=== PATIENT | female | born 1950 | race Caucasian/White ===

== ENCOUNTER → 2018-12-27 12:03 | Outpatient (CLI) | payer OTHER, SELFPAY ==
--- NOTE | 2018-12-27 12:34 | CT_ITS ---
PROCEDURE: CT HEART W CALCIUM SCORE CLINICAL HISTORY: chest pain COMPARISON: No exams were available for comparison TECHNIQUE: Axial images obtained with sagittal and coronal reformats. All CT scans at the facility use one or more dose reduction, viz: automated exposure control, ma/kV adjustment per patient size (including targeted exams where dose is matched to indication, i.e. head), or iterative reconstruction technique. FINDINGS: The coronary artery calcium score is 0. No identifiable calcific atherosclerotic plaque with very low cardiovascular disease risk. Incidental findings include a small hypodense lesion of the left hepatic lobe near the dome of the liver at 7 mm and may represent a small cyst. There is a subpleural 5 mm nodular opacity in right upper lobe anteriorly nonspecific IMPRESSION: No identifiable calcific plaque very low cardiovascular disease risk Dictated by: Tod Farooq MD 12/27/2018 16:40 Electronically signed by Tod Farooq MD in [place] 12/27/2018 16:40
== END ==
PROVIDERS: Visit Provider Internal Medicine
DX: Z13.6 Encounter for screening for cardiovascular disorders (principal); R07.9 Chest pain, unspecified; R06.09 Other forms of dyspnea; E03.9 Hypothyroidism, unspecified; E11.69 Type 2 diabetes mellitus with other specified complication; E11.9 Type 2 diabetes mellitus without complications; E78.5 Hyperlipidemia, unspecified; I10 Essential (primary) hypertension; K21.9 Gastro-esophageal reflux disease without esophagitis
CPT/HCPCS: 75571

== ENCOUNTER → 2018-12-27 12:06 | Outpatient (CLI) | payer MEDICARE, SELFPAY ==
--- NOTE | 2018-12-27 12:14 | CA_ITS ---
APPROVED REPORT EXAM: Comprehensive 2D, Doppler, and color-flow Echocardiogram Seed Service Advisor: Morena Joy CRT Ht: 5 ft 1 in Wt: 138lbs BSA: 1.61 BP: 119/80 mmHg Indications: HTN, MURMUR, PALP 2D Dimensions LVOT 1.85 cm (M/F) 1.5-2.5 M-Mode Dimensions RVDd 2.10 cm (0.9-2.6) LVDd 4.98 cm (3.5-5.7) LVDs 3.26 cm (3.5-5.7) IVSd 1.17 cm (0.6-1.1) PWd 0.87 cm (0.6-1.1) EF (Teich) 63.50% FS 34.50% EDV (Teich) 117.10 mL ESV (Teich) 42.80 mL LV Diastology E/A Ratio 0.59 Mitral Valve MV A Velocity 108.00 (40-130 cm/s) Left Ventricle Left atrium is mildly enlarged, left ventricle is normal size, mild concentric left ventricular hypertrophy, visually estimated ejection fraction 55% with no regional wall motion abnormality. Grade 1 diastolic dysfunction seen without tissue Doppler evidence of raise left atrial pressure. Right Ventricle Right atrium and right ventricular normal size and contractility. Aortic Valve Aortic valve is thickened and calcified difficult to display good mobility, there is no aortic stenosis, there is trace aortic insufficiency. Mitral Valve Mitral valve is grossly normal, there is mild mitral regurgitation. Tricuspid Valve Tricuspid valve is grossly normal, there is mild tricuspid regurgitation. Pulmonic Valve Pulmonic valve is poorly visualized. Great Vessels Aortic root is normal size. Pericardium No significant pericardial effusion noted. Conclusion 1. Mildly enlarged left atrium, normal left ventricular size, mild concentric left ventricular hypertrophy, visually estimated ejection fraction 55% with no regional wall motion abnormality. Grade 1 diastolic dysfunction seen without tissue Doppler evidence of raise left atrial pressure. 2. Thickened and calcified aortic valve without aortic stenosis, there is trace aortic insufficiency. 3. Mild mitral and tricuspid regurgitation. 4. No significant pericardial effusion noted. Electronically signed by : Cristobal Henderson, 12/28/2018 13:41:43
--- NOTE | 2018-12-27 12:34 | XR_ITS ---
PROCEDURE: XR CHEST 2V CLINICAL HISTORY: chest pain, dyspnea Anterior chest pain COMPARISON: No exams were available for comparison FINDINGS: The cardiomediastinal silhouette and pulmonary vascularity are within normal limits. The lungs are clear without infiltrates, suspicious nodules, or pleural effusions. No acute bony abnormalities. IMPRESSION: No acute findings. Dictated by: Tod Farooq MD 12/27/2018 14:56 Electronically signed by Tod Farooq MD in [place] 12/27/2018 14:56
== END ==
PROVIDERS: Visit Provider Internal Medicine
DX: R07.9 Chest pain, unspecified (principal); R06.09 Other forms of dyspnea; K21.9 Gastro-esophageal reflux disease without esophagitis; I10 Essential (primary) hypertension; E03.9 Hypothyroidism, unspecified; E11.69 Type 2 diabetes mellitus with other specified complication; E78.5 Hyperlipidemia, unspecified
CPT/HCPCS: 71046; 93306

== ENCOUNTER → 2019-08-15 12:07 | Outpatient (CLI) | payer MEDICARE, SELFPAY ==
[2019-08-15 14:19] LABS: Benzodiazepines Screen,Urine Negative ng/ml (<200)
[2019-08-15 14:20] LABS: Amphetamine/Metha Screen,Urine Negative ng/ml (<1000)
[2019-08-15 14:21] LABS: Barbiturates Screen,Urine Negative ng/ml (<200)
[2019-08-15 14:24] LABS: Cocaine Screen,Urine Negative ng/ml (<300); Methadone Screen,Urine Negative ng/ml (<300)
[2019-08-15 14:25] LABS: Phencyclidine Screen,Urine Negative ng/ml (<25)
[2019-08-15 14:26] LABS: Opiate Screen,Urine Negative ng/ml (<300)
[2019-08-15 14:43] LABS: Cannabinoid Screen,Urine Negative ng/ml (<50)
== END ==
PROVIDERS: Visit Provider Internal Medicine
DX: E78.5 Hyperlipidemia, unspecified (principal); F41.9 Anxiety disorder, unspecified; I10 Essential (primary) hypertension; R06.00 Dyspnea, unspecified; R07.9 Chest pain, unspecified; Z79.899 Other long term (current) drug therapy
CPT/HCPCS: 80305

== ENCOUNTER → 2020-12-17 11:58 | Outpatient (CLI) | payer MEDICARE, SELFPAY ==
[2020-12-17 14:59] LABS: Amphetamine/Metha Screen,Urine Negative ng/ml (<1000)
[2020-12-17 15:00] LABS: Barbiturates Screen,Urine Negative ng/ml (<200); Benzodiazepines Screen,Urine Negative ng/ml (<200)
[2020-12-17 15:01] LABS: Cannabinoid Screen,Urine Negative ng/ml (<50)
[2020-12-17 15:07] LABS: Cocaine Screen,Urine Negative ng/ml (<300)
[2020-12-17 15:08] LABS: Methadone Screen,Urine Negative ng/ml (<300)
[2020-12-17 15:09] LABS: Opiate Screen,Urine Negative ng/ml (<300); Phencyclidine Screen,Urine Negative ng/ml (<25)
== END ==
PROVIDERS: Visit Provider Internal Medicine
DX: E78.5 Hyperlipidemia, unspecified (principal); F41.9 Anxiety disorder, unspecified; I10 Essential (primary) hypertension; R06.00 Dyspnea, unspecified; Z79.899 Other long term (current) drug therapy
CPT/HCPCS: 80305

== ENCOUNTER → 2022-04-28 12:31 | Outpatient (CLI) | payer MEDICARE, SELFPAY ==
--- NOTE | 2022-04-28 12:39 | CA_ITS ---
FINAL REPORT TECHNIQUE: Color Doppler, duplex Doppler and rajput scale sonography of the bilateral neck arterial vasculature was performed. Velocities were measured in the carotid arteries. Stenosis evaluation based on the validated velocity criteria. CLINICAL HISTORY: dizziness, hyperlipidemia, tingling on left side of face and arm. COMPARISON: None FINDINGS: The peak systolic velocity of the right common carotid artery is 97 cm/s. The peak systolic velocity of the right internal carotid artery is 137 cm/s and end diastolic velocity 43 cm/s. The ICA/CCA ratio is 1.8. A mild amount of plaque is present. The right external carotid artery is patent. The right vertebral artery is patent with antegrade flow. The peak systolic velocity of the left common carotid artery is 152 cm/s. The peak systolic velocity of the left internal carotid artery is 126 cm/s and end diastolic velocity 34 cm/s. The ICA/CCA ratio is 1.5. A mild amount of plaque is present. The left external carotid artery is patent.The left vertebral artery is patent with antegrade flow. IMPRESSION: Less than 50% bilateral carotid stenoses. Bilateral patent vertebral arteries with antegrade flow. If indicated, CTA or MRA could further evaluate. Reviewed, Interpreted and Dictated by Winston Fierro III, MD Transcribed by Kelsey Hardin Authenticated and [facility]
== END ==
PROVIDERS: Visit Provider Internal Medicine
DX: E78.2 Mixed hyperlipidemia (principal); I10 Essential (primary) hypertension; R06.09 Other forms of dyspnea; R07.9 Chest pain, unspecified; R42 Dizziness and giddiness; R91.8 Other nonspecific abnormal finding of lung field
CPT/HCPCS: 93880

== ENCOUNTER → 2022-07-01 10:37 | Outpatient (CLI) | payer MEDICARE, SELFPAY ==
--- NOTE | 2022-07-01 11:18 | CT_ITS ---
FINAL REPORT TECHNIQUE: Axial images were obtained from the lung apex to the mid abdomen by computed tomography. Coronal reformatted images were obtained. This study was performed with techniques to keep radiation doses as low as reasonably achievable, (ALARA). Individualized dose reduction techniques using automated exposure control or adjustment of mA and/or kV according to the patient''s size were employed. CLINICAL HISTORY: cp/dyspnea FINDINGS: There is no axillary adenopathy. There is no hilar or mediastinal adenopathy. Heart size is normal. There is no pericardial or pleural effusion. There is mild bibasilar atelectasis or scarring. There is no suspicious mass or nodule. There is a less than 1 cm probable cyst in the left liver dome. IMPRESSION: Mild bibasilar atelectasis or scarring. Reviewed, Interpreted and Dictated by Winston Fierro III, MD Transcribed by Yumiko Reed Authenticated and [facility]
--- NOTE | 2022-07-01 11:18 | NM_ITS ---
APPROVED REPORT Exam: Nuclear Stress Test Indication: HTN, PRE DIABETIC, FM HX, C.P., SOB, PALPITATIONS, FATIGUE, ABN EKG Patient Location: Outpatient Stress Tech: Jillian Montoya [place] Tech:Jennifer Enriquez, ARRT RT(R)(N) Ht: 5 ft 1 in Wt: 125 lbs Bra Size: 38C HR: 79 bpm BP: 166/81 mmHg BSA: 1.55 m2 TID: 1.15 BMI: 23.6 History: HTN, HYPERLIPIDEMIA, TOB USE, FM HX, C.P., SOB, SYNCOPE, FATIGUE Procedure: Patient received 0.4 mg of intravenous Lexiscan, resting heart rate 79 bpm, resting blood pressure 166/81 mmHg, with Lexiscan maximum heart rate achieved was 115 bpm which is % of the maximum predicted heart rate and blood pressure was 172/90 mmHg. With Lexiscan, patient denied any complaint of chest pain. Cardiac Stress and Resting SPECT Images: Cardiac Stress and Resting SPECT images were obtained using technetium 99m Myoview 32.8 mCi stress and 10.71 mCi at rest. Resting and stress imaging demonstrates a fixed perfusion defect in the mid to basal anterior and anteroseptal LV wall, as well as predominantly reversible perfusion defect inferiorly. These defects are no longer visualized at stress with prone positioning, demosntrating uniform radiotracer uptake, suggestive of both breast and diaphragm attenuation. Gated imaging demonstrates normal lef ventricular systolic global and regional function. LVEF is calculcated at 60%. Conclusion: There is breast and diaphragmatic attenuation present. No evidence of infarct or reversible ischemia. Gated imaging demonstrates normal lef ventricular systolic global and regional function. LVEF is calculcated at 60%. Electronically signed by : Daphne Koo, 07/02/2022 20:53:48
--- NOTE | 2022-07-01 13:42 | CA_ITS ---
APPROVED REPORT Exam: Pharmacologic Technologist: Jillian Rudd, Ht: 5 ft 1 in Wt: 125 lbs BSA: 1.55 m2 HR: 72 bpm BP: 166/81 mmHg Medical History Medications: Xanax,,,,, Vitamin B12,,,,, Vitamin D3,,,,, Atorvastatin,,,,, Calcium,,,,, Famotidine,,,,, Magnesium,,,,, PaXIL,,,,, Co Q10,,,,, Stress Test Details Test: LEXISCAN Reason for pharmacologic stress test: physical limitation. HR Resting HR: 79 bpm Max Heart Rate (APMHR): 148 bpm Max HR Achieved: 115 bpm Target HR (85% APMHR): 126 bpm % of APMHR: 78 Recovery HR: 85 bpm BP Resting BP: 166/81 mmHg Max BP: 172/90 mmHg Recovery BP: 141.0/73.0 mmHg ECG Resting ECG: sinus arrhythmia, non-specific T-wave changes in inferior leads Stress ECG: No change Clinical Exercise duration: 04:00 min Highest Stage Achieved: Exercise capacity: n/a METs Stress ECG Conclusion Symptoms: SOA, mild chest tightness, mild stomach & head discomfort. Arrhythmias/Ectopy: None ST-T changes: No significant changes. Conclusion: unremarkable Lexiscan stress. Myoview images reported separately. Test Summary REST . . . . . . . Resting REST 06:02 . . 79 . 166/ 81 . . Stage 1 01:00 . . 102 . . . . Stage 2 01:00 . . 113 . 168/ 87 . . Stage 3 01:00 . . 111 . 159/ 86 . . Stage 4 01:00 . . 103 . 172/ 90 . Stop exercise at 04:00 RECOVERY 01:00 . . 100 . . . . RECOVERY 02:00 . . 89 . . . . RECOVERY 03:00 . . 104 . 130/ 75 . . RECOVERY 03:39 . . 91 . 141/ 73 . . Electronically signed by : Daphne Koo, 07/01/2022 21:23:46
== END ==
LOC: RT 10:38
PROVIDERS: Visit Provider Internal Medicine
DX: E78.2 Mixed hyperlipidemia (principal); I10 Essential (primary) hypertension; I51.89 Other ill-defined heart diseases; R06.09 Other forms of dyspnea; R07.9 Chest pain, unspecified; R91.8 Other nonspecific abnormal finding of lung field
CPT/HCPCS: 71250; 78452; 93017; 93306; A9502; J2785

== ENCOUNTER → 2022-12-21 11:40 | Outpatient (CLI) | payer MEDICARE, SELFPAY ==
[2022-12-21 12:43] LABS: Amphetamine/Metha Screen,Urine Negative ng/ml (<1000); Benzodiazepines Screen,Urine Negative ng/ml (<200)
[2022-12-21 12:44] LABS: Barbiturates Screen,Urine Negative ng/ml (<200)
[2022-12-21 12:45] LABS: Cannabinoid Screen,Urine Negative ng/ml (<50); Cocaine Screen,Urine Negative ng/ml (<300)
[2022-12-21 12:46] LABS: Methadone Screen,Urine Negative ng/ml (<300); Opiate Screen,Urine Negative ng/ml (<300)
[2022-12-21 12:47] LABS: Phencyclidine Screen,Urine Negative ng/ml (<25)
== END ==
PROVIDERS: Visit Provider Internal Medicine
DX: E78.5 Hyperlipidemia, unspecified (principal); F41.9 Anxiety disorder, unspecified; I10 Essential (primary) hypertension; R42 Dizziness and giddiness; R91.8 Other nonspecific abnormal finding of lung field; Z79.899 Other long term (current) drug therapy
CPT/HCPCS: 80305

== ENCOUNTER 2023-06-21 12:22 | Outpatient (CLI) | payer MEDICARE, SELFPAY | END 2023-06-21 23:59 | disposition home or self-care (01) | LOC: RT 12:24 | PROVIDERS: Visit Provider Internal Medicine | DX: R00.0 Tachycardia, unspecified (principal) | CPT/HCPCS: 93225 ==

== ENCOUNTER 2023-06-23 12:39 | Outpatient (CLI) | payer MEDICARE, SELFPAY | END 2023-06-23 23:59 | disposition home or self-care (01) | PROVIDERS: Visit Provider Internal Medicine | DX: R00.0 Tachycardia, unspecified (principal) | CPT/HCPCS: 93270 ==

== ENCOUNTER → 2023-08-04 08:25 | Outpatient (CLI) | payer MEDICARE, SELFPAY | LOC: SL 08:26 | PROVIDERS: PCP Internal Medicine; Visit Provider Internal Medicine | DX: G47.33 Obstructive sleep apnea (adult) (pediatric) (principal); G47.36 Sleep related hypoventilation in conditions classified elsewhere; G47.9 Sleep disorder, unspecified; R06.83 Snoring; R40.0 Somnolence; R53.83 Other fatigue | CPT/HCPCS: G0399 ==

== ENCOUNTER 2023-08-24 11:52 | Outpatient (CLI) | payer MEDICARE, SELFPAY ==
--- NOTE | 2023-08-24 11:53 | CT_ITS ---
APPROVED REPORT Correctional Program Specialist: CLINICAL INDICATION Chest Pain TECHNIQUE Image Acquisition: A 128 slice MDCT scanner (iLoop Mobilea View) was used for data acquisition. A noncontrast coronary calcium scan was performed. A CT attenuation threshold of 130 Hounsfield units (HU) was used for the detection of calcium in contiguous voxels of 1 sq mm in area to be counted as individual lesions. Bolus tracking in the ascending aorta with a threshold of 180 HU was performed. Immediately afterwards, ECG synchronized cardiac CT was then performed from the cardiac base to apex using retrospective gating with ECG tube current modulation. A total of 85 mL of Isovue 370 mg/mL contrast medium was administered at 5 mL/sec followed by a saline flush using a biphasic injection protocol. A tube voltage of 120 KVp was used. The patient received the following medications prior to the cardiac CT. 50 mg of oral metoprolol 15 mg of oral ivabradine 0.8 mg of sublingual nitroglycerin The average heart rate at the time of acquisition was 67 bpm and regular. Image Reconstruction Transaxial images were reconstructed at 0.67 mm slide thickness. Data was reviewed interactively on an advanced workstation capable of 2 and 3-dimensional displays in all conventional reconstruction formats, including multiplanar reformations, maximum intensity projections, curved multiplanar reformations, and volume rendered reconstructions. When applicable, selected routine images describing the relevant coronary anatomy and pathology were saved and sent to PACS. Complications None Technical Quality Overall image quality was good. Coronary artery opacification was adequate. Total DLP (Dose-Length Product) is 2321.6 mGy-cm. The reported value represents the total of one or more individual components during the CT acquisition of this date and at this time, and as such, the same value may appear in more than one CT report depending on the interpreting/reporting physicians. COMPARISON None FINDINGS CT Coronary Calcium Scoring LMA (Left Main Artery) = 0 LAD (Left Anterior Descending) = 0 LCX (Left Coronary Circumflex) = 0 RCA (Right Coronary Artery) = 0 Total Calcium Score = 0 using the AJ-130 method. The interpretation of the calcium heart score is based on the following continuum*: 0 = no calcified plaque detected (risk of coronary artery disease is very low ??? less than 5%) 1-10 = calcium detected in extremely minimal levels (risk of coronary diseases is still low ??? less than 10%) 11-100 = mild levels of plaque detected with certainty (mild or minimal narrowing of heart arteries is likely) 101-400 = definite,at least moderate levels of plaque detected (relatively high risk of a heart attack within 3-5 years) >401-999 = extensive levels of plaque detected (high risk of heart attack, high levels of vascular disease are present, high likelihood of at least one significant coronary narrowing) *The calcium heart score quantifies the burden of coronary calcification/plaque in the coronary arteries. The calcium heart score is not able to evaluate the presence or burden of non-calcified (i.e. soft) plaque. There is calcification present in the descending thoracic aorta. Coronary CT Angiography The coronary arterial system is right dominant. Quantitative Stenosis Grading: Left Main (LM): The left main originates normally from the left sinus of Valsalva. The LM trifurcates into the left anterior descending artery, ramus intermedius, and left circumflex artery. The LM is patent with no evidence of atherosclerosis. Left Anterior Descending (LAD) and Diagonal Branches: The LAD gives off 2 diagonal branch(es). The LAD and its branches are patent with no evidence of atherosclerosis. There is no evidence of LAD-myocardial bridge. Ramus-intermedius (RI): The RI is patent. Left Circumflex (LCX) and Obtuse Marginals (OM): The LCX gives off 2 Obtuse Marginal (OM) branch(es). The LCX and its branches are patent with no evidence of atherosclerosis. Right Coronary Artery (RCA): The RCA originates normally from the right sinus of Valsalva. The RCA gives off a posterior descending artery (PDA) and posterolateral (PL) branches. The RCA and its branches are patent with no evidence of atherosclerosis. Non-Coronary Cardiac Findings: Analysis of the left ventricular (LV) structure and function was performed after 3-D reconstruction of the LV from axial images, with user-corrected automatic contouring for assessment of LV volumes and user-defined reconstruction from oblique planes for measurement of 3-D cardiac structure and function. -The left ventricle systolic function is normal. -There is no left atrial appendage filling defect. Two right pulmonary veins and two left pulmonary veins drain normally into the left atrium. -No pericardial thickening or calcification. -Central and branch pulmonary arteries in the [id number] are unremarkable. -Thoracic aorta within the visualized thoracic aortic-branches in the [id number] is unremarkable. Extracardiac Structures No significant extra-cardiac findings. Note, however, that this study is focused on the cardiac findings. IMPRESSION -No coronary calcification with an Agatston score = 0 using the AJ-130 method. -No evidence of significant flow-limiting atherosclerosis of the coronary arteries. -Calcification present in the descending thoracic aorta. -CAD-RADS 0. Management recommendations per ACC/AHA guidelines*, as clinically appropriate. *Recommendations: CAD RADS 0: Reassurance. Consider non-atherosclerotic causes of chest pain. CAD RADS 1: Consider non-atherosclerotic causes of chest pain. Consider preventive therapy and risk factor modification. CAD RADS 2: Consider non-atherosclerotic causes of chest pain. Consider preventive therapy and risk factor modification, particularly for patients with nonobstructive plaque in multiple segments. CAD RADS 3: Consider further functional testing. Consider symptom-guided anti-ischemic and preventive pharmacotherapy as well as risk factor modification per published guideline statements. CAD RADS 4A: Consider further functional testing or invasive coronary angiography with revascularization per published guideline statements. Consider symptom-guided anti-ischemic and preventive pharmacotherapy as well as risk factor modification per published guideline statements. CAD RADS 4B: Invasive coronary angiography recommended with revascularization per published guideline statements. Consider symptom-guided anti-ischemic and preventive pharmacotherapy as well as risk factor modification per published guideline statements. CAD RADS 5: Consider invasive angiography and/or viability assessment with revascularization per published guideline statements. Consider symptom-guided anti-ischemic and preventive pharmacotherapy as well as risk factor modification per published guideline statements. CRITICAL RESULT None COMMUNICATION Per this written report The coronary and cardiac findings of this CCTA were reviewed, reported, and signed by Naseem Koo MD (Manager [employer]) Conclusion Electronically signed by : Daphne Koo MD 08/25/2023 12:41:20
[2023-08-24 12:08] VITALS: BMI 23.8
[2023-08-24 12:29] VITALS: BP 155/82; PULSE 67; RESP 16; TEMP 36.2; O2SAT 98
[2023-08-24 12:35] LABS: Anion Gap 10.4 mEq/L (5-15); Blood Urea Nitrogen 15 mg/dl (7-17); Calcium 9.6 mg/dl (8.4-10.2); Carbon Dioxide 30 mmol/L (22.0-30.0); Chloride 104 mmol/L (98-107); Creatinine Clearance Estimated 45 mL/min (50-200); Estimated Glomerular Filt Rate 82 ml/min (>60); GFR (African American) 99 ML/MIN (>60); Glucose 111 mg/dl (74-100); Potassium 4.4 mmoL/L (3.5-5.1); Sodium 140 mmol/L (136-145)
[2023-08-24 12:58] VITALS: BP 181/95; PULSE 69; RESP 16; O2SAT 95
[2023-08-24] MEDS: NITROGLYCERIN 0.4MG SL TABLET SL (12:58)
[2023-08-24 13:01] VITALS: BP 164/92; PULSE 63; RESP 16; O2SAT 95
[2023-08-24 13:07] VITALS: BP 102/64; PULSE 76; RESP 16; O2SAT 93
[2023-08-24] MEDS: METOPROLOL TARTRATE 5MG/5ML VIAL 5 MG IV (13:07)
[2023-08-24 13:16] VITALS: BP 117/64; PULSE 63; RESP 18; O2SAT 98
[2023-08-24 13:26] VITALS: BP 137/82; PULSE 63; RESP 18; O2SAT 98
[2023-08-24] MEDS: SODIUM CHLORIDE 0.9% 10ML SYR (RAD ONLY) 10 ML IV (13:31)
[2023-08-24] MEDS: IOPAMIDOL-370 (76%);100ML BOTTLE 85 ML IV (13:31)
== END 2023-08-24 13:35 | disposition home or self-care (01) ==
PROVIDERS: PCP Physician Assistant; Visit Provider Physician Assistant
DX: R07.9 Chest pain, unspecified (principal); R06.09 Other forms of dyspnea; R91.8 Other nonspecific abnormal finding of lung field; R42 Dizziness and giddiness; I10 Essential (primary) hypertension; E78.2 Mixed hyperlipidemia; R53.83 Other fatigue
CPT/HCPCS: 75574; 80048; Q9967

== ENCOUNTER 2023-08-25 11:08 | Emergency (ER) | payer MEDICARE, SELFPAY ==
[2023-08-25] VITALS (8 sets, daily range): BP systolic 124–176; BP diastolic 56–85; PULSE 48–67; RESP 11–18; TEMP 36.6–36.9; O2SAT 93–97; BMI 23.8
--- NOTE | 2023-08-25 | ECG_ITS ---
APPROVED REPORT Exam: Resting ECG HR:58 bpm ECG Measurements Heart Rate 58 AXES CO 163 P 61 QRSd 72 QRS 37 QT 418 T 61 QTc 415 Conclusion SINUS BRADYCARDIA LOW QRS VOLTAGE IN PRECORDIAL LEADS [QRS DEFLECTION < 1.0 mV IN CHEST LEADS] BORDERLINE ECG UNCONFIRMED REPORT Electronically signed by : Isaias Swann, 08/25/2023 17:49:49
--- NOTE | 2023-08-25 11:26 | HMH.EDGENADL ---
Discharge Plan Disposition Patient Disposition: Home, Self-Care Prescriptions Prescriptions: No Action cyanocobalamin (vitamin B-12) 1,000 mcg capsule 1,000 mcg PO DAILY cholecalciferol (vitamin D3) 2,000 unit capsule 2,000 unit PO DAILY magnesium 250 mg tablet 250 mg PO DAILY paroxetine HCl [Paxil] 10 mg tablet 20 mg PO DAILY coenzyme Q10 [Co Q-10] 100 mg capsule 100 mg PO DAILY omeprazole 20 mg capsule,delayed release(DR/EC) 20 mg PO DAILY fexofenadine [Karissa Allergy] 180 mg tablet 180 mg PO DAILY azelastine [Astepro Allergy] 205.5 mcg (0.15 %) spray,non-aerosol 1 spray intranasal HS Rx Instructions: administer into each nostril montelukast 10 mg tablet 10 mg PO DAILY ascorbic acid (vitamin C) 1,000 mg tablet 1 g PO Q6H glucosamine-chondroitin [Osteo Bi-Flex] 250-200 mg tablet 2 tab PO ONCE Rx Instructions: give after food/meal fluticasone propionate [Flonase Allergy Relief] 50 mcg/actuation spray,suspension 2 spray intranasal DAILY 90 Days Qty: 16 2RF Rx Instructions: administer into each nostril budesonide-formoterol [Symbicort] 160-4.5 mcg/actuation HFA aerosol inhaler 1 puff inhalation QID PRN (Reason: shortness of breath or wheezing) 90 Days Qty: 10.2 3RF alprazolam [Xanax] 0.5 mg tablet 0.5 mg PO DAILY PRN (Reason: anxiety) Qty: 30 5RF atorvastatin 20 mg tablet See Rx Instructions .ROUTE .COMPLEX Qty: 90 3RF Dose Instruction: TAKE ONE TABLET BY MOUTH DAILY Rx Instructions: TAKE ONE TABLET BY MOUTH DAILY Referrals Follow up/Referrals: Provider,Referral, MD [Primary Care Provider] - See instructions Activity Restrictions/Add. Instructions Additional Instructions/Restrictions: Continue to take your Pepcid as needed up to twice a day. Stay well-hydrated. Follow-up with your machine fastener to soon as possible. Your CT CTA was negative yesterday. Your troponins were negative today. Your potassium level is normal. Please follow up with your primary care provider in 2-3 days. Please return to ED if your symptoms worsen, change in location, change in severity, new symptoms develop or if you become concerned for your health. Clinical Impressions Clinical Impression: Gastritis Discharge ED Provider: Isaias Swann General Adult HPI General Chief complaint: Chest Pain Stated complaint: chest pain Time Seen by Provider: 08/25/23 11:26 History of Present Illness HPI narrative: Patient is a 72-year-old female with history of GERD, hyperlipidemia. She presents today for concern for chest pain. Reportedly, last night, about 1 hour after eating dinner, she began to feel substernal chest pressure and burning it radiated to her left arm as well as up to her left neck. She also had some epigastric discomfort concomitantly. She tried to sleep it off, but the pain persisted so she decided to present this morning. She reports it is not necessarily associated with exertion and not necessarily made better by rest. Not associated with shortness of breath. Does not radiate to the back. Denies any fevers, numbness weakness tingling. Of note she did have 1 episode of vomiting yesterday, her did as well after they ate out and her concern for food poisoning. Patient is also concerned about her heart rate being too low and reports that today it has gotten as low as 48, but she has not felt lightheaded. Notably, patient underwent a CT CTA yesterday and the cardiology provider notified me personally that the results were reassuring with no evidence of stenosis of the coronaries. Related Data Home Medications Medication Instructions Recorded Confirmed cholecalciferol (vitamin D3) 50 2,000 unit PO DAILY 12/26/17 08/24/23 mcg (2,000 unit) capsule cyanocobalamin (vitamin B-12) 1,000 mcg PO DAILY 12/26/17 08/24/23 1,000 mcg capsule magnesium 250 mg tablet 250 mg PO DAILY 12/27/18 08/24/23 coenzyme Q10 100 mg capsule (Co 100 mg PO DAILY 04/23/20 08/24/23 Q-10) paroxetine HCl 10 mg tablet (Paxil) 20 mg PO DAILY 10/21/21 08/24/23 ascorbic acid (vitamin C) 1,000 mg 1 g PO Q6H 12/21/22 08/24/23 tablet azelastine 205.5 mcg (0.15 %) 1 spray intranasal HS 12/21/22 08/24/23 nasal spray (Astepro Allergy) fexofenadine 180 mg tablet 180 mg PO DAILY 12/21/22 08/24/23 (Karissa Allergy) glucosamine-chondroitin 250 mg-200 2 tab PO ONCE 12/21/22 08/24/23 mg tablet (Osteo Bi-Flex) montelukast 10 mg tablet 10 mg PO DAILY 12/21/22 08/24/23 omeprazole 20 mg capsule,delayed 20 mg PO DAILY 12/21/22 08/24/23 release Previous Rx's Medication Instructions Recorded budesonide-formoterol HFA 160 1 puff inhalation QID PRN 12/21/22 mcg-4.5 mcg/actuation aerosol shortness of breath or wheezing 90 inhaler (Symbicort) days #10.2 grams fluticasone propionate 50 2 spray intranasal DAILY 90 days 12/21/22 mcg/actuation nasal #16 grams spray,suspension (Flonase Allergy Relief) alprazolam 0.5 mg tablet (Xanax) 0.5 mg PO DAILY PRN anxiety #30 06/06/23 tabs atorvastatin 20 mg tablet See Rx Instructions .Route 06/14/23 .COMPLEX #90 tabs Allergies Allergy/AdvReac Type Severity Reaction Status Date / Time latex Allergy Mild Rash Verified 08/25/23 11:52 clindamycin AdvReac Mild Headache Verified 08/25/23 11:52 cefuroxime [From Ceftin] AdvReac Verified 08/25/23 11:52 PFSH PFS Disclaimer: The information contained in this section may have been updated after the patient was seen, as this information can be updated by other users. Medical History (Updated 08/25/23 @ 15:05 by Isaias Swann MD) PAKO (obstructive sleep apnea) Asthma Chronic cough Allergic rhinitis Dizziness Pulmonary nodules Chest pain Dyspnea Surgical History History of tubal ligation History of surgery on lower extremity Family History Other Asthma COPD (chronic obstructive pulmonary disease) Cancer Diabetes Lung cancer Social History Smoking Status: Never smoker alcohol intake: never substance use type: denies use current occupational status: retired Travel in the last 8 weeks: None ROS Obtained: Yes Systems reviewed as appropriate & no additional complaints except as documented Physical Exam General General appearance: alert and in no apparent distress Head Head exam: atraumatic and normocephalic Eye Eye exam: Present PERRL and EOMI ENT ENT exam: Present normal oropharynx and mucous membranes moist Neck Neck exam: Present full ROM and trachea midline Chest Chest inspection: Present symmetric chest wall rise Respiratory Respiratory exam: Present normal lung sounds bilaterally; Absent respiratory distress, wheezes or stridor Cardiovascular Cardiovascular exam: Present regular rate, normal rhythm and normal heart sounds Abdominal Exam Abdominal exam: Present soft and tenderness (Mild epigastric); Absent distention Extremities Exam Extremities exam: Present full ROM Neurological Exam Neurological exam: Present alert, oriented X3 and normal gait; Absent motor sensory deficit Psychiatric Psychiatric exam: Present normal mood Skin Skin exam: Present warm and dry Medical Decision Making Medical Records Medical records reviewed: Yes I reviewed the patient's medical records. Miguel Inquiry Pt receiving controlled substance: No Vital Signs: 08/25/23 11:16 08/25/23 11:30 08/25/23 12:30 Temperature 98.4 F Temperature Source Oral Pulse Rate 52 L 48 L Pulse Rate [Left] 65 Respiratory Rate 18 11 L 12 Blood Pressure 155/70 H 137/63 Blood Pressure [Right Arm] 176/85 H Blood Pressure Mean [Right Arm] 115 Blood Pressure Source [Right Arm] Automatic Cuff Blood Pressure Position [Right Arm] Sitting 02 Sat by Pulse Oximetry 97 93 L 93 L Oxygen Delivery Method Room Air Room Air 08/25/23 13:00 08/25/23 13:30 08/25/23 14:00 Temperature Temperature Source Pulse Rate 50 L 53 L 67 Pulse Rate [Left] Respiratory Rate 14 13 12 Blood Pressure 127/57 L 124/56 L 139/73 Blood Pressure [Right Arm] Blood Pressure Mean [Right Arm] Blood Pressure Source [Right Arm] Blood Pressure Position [Right Arm] 02 Sat by Pulse Oximetry 95 95 97 Oxygen Delivery Method Room Air 08/25/23 14:30 08/25/23 15:23 Temperature 98 F Temperature Source Pulse Rate 54 L 55 L Pulse Rate [Left] Respiratory Rate 12 16 Blood Pressure 140/64 132/60 Blood Pressure [Right Arm] Blood Pressure Mean [Right Arm] Blood Pressure Source [Right Arm] Blood Pressure Position [Right Arm] 02 Sat by Pulse Oximetry 96 Oxygen Delivery Method Room Air Lab Data Lab Results 08/25/23 11:10: WBC 6.1, RBC 4.22, Hgb 13.1, Hct 39.8, MCV 94.2, MCH 30.9, MCHC 32.8, RDW 13.8, Plt Count 217, MPV 9.5, Neut % (Auto) 57.0, Lymph % (Auto) 33.3, [place] % (Auto) 4.5, Eos % (Auto) 3.2, Baso % (Auto) 2.0, Neut # (Auto) 3.5, Lymph # (Auto) 2.0, [place] # (Auto) 0.3, Eos # (Auto) 0.2, Baso # (Auto) 0.1, PT 10.0 L, INR 0.88 L, Sodium 142, Potassium 4.1, Chloride 111 H, Carbon Dioxide 28, Anion Gap 7.1, BUN 15, Creatinine 0.70, Estimated Creat Clear 45, Estimated GFR 82, Est GFR ( Amer) 99, Glucose 133 H, Calcium 9.3, Magnesium 2.2, Total Bilirubin 0.5, AST 40 H, ALT 26, Alkaline Phosphatase 94, Troponin I < 0.01, Total Protein 7.9, Albumin 4.6, Globulin 3.3 H, Albumin/Globulin Ratio 1.4, Lipase 83 08/25/23 14:17: Troponin I < 0.01 08/25/23 11:10 08/25/23 11:10 Orders (Tests/Meds): ED MEDICATIONS Discontinued Medications Generic Name Dose Route Start Last Admin Trade Name Pavelq PRN Reason Stop Dose Admin Aspirin 324 mg 08/25/23 11:52 08/25/23 12:16 Aspirin 81mg Chewable Tablet PO 08/25/23 11:53 324 mg ONCE ONE Administration Belladonna Alkaloids 60 ml 08/25/23 11:52 08/25/23 12:16 Belladonna Alkaloids 60 Ml Ml PO 08/25/23 11:53 60 ml ONCE ONE Administration Famotidine 20 mg 08/25/23 11:52 08/25/23 12:16 Famotidine 20mg/2ml Vial IV 08/25/23 11:53 20 mg ONCE ONE Administration Sodium Chloride 8 ml 08/25/23 11:52 Sodium Chloride 0.9% 10ml Vial IV 09/24/23 11:51 NEEDED PRN dilute pepcid Sodium Chloride 10 ml 08/25/23 11:52 Sodium Chloride 0.9% 10ml Flush Syringe IV 09/24/23 11:51 NEEDED PRN Maintain IV Site ORDERS Category Date Time Status XR chest 2V Stat Exams 08/25/23 11:52 Completed Complete Blood Count Auto Diff Stat Lab 08/25/23 11:10 Completed Comprehensive Metabolic Panel Stat Lab 08/25/23 11:10 Completed Lipase Stat Lab 08/25/23 11:10 Completed Magnesium Stat Lab 08/25/23 11:10 Completed Prothrombin Time INR Stat Lab 08/25/23 11:10 Completed Troponin I Q3H Lab 08/25/23 14:17 Completed Troponin I Stat Lab 08/25/23 11:10 Completed ECG Data Tracing #1: I reviewed this ECG and interpreted as documented below: Independently interpreted by myself demonstrate sinus bradycardia with a rate of 58, low voltage QRS complexes, some mild ST depression/inversion in V3, but no acute ischemic ST changes. Medical Decision Narrative: In summary, this 72-year-old female presents to the emergency department today with chest pain. On initial evaluation patient is resting comfortably in no acute distress and is interactive. She appears warm and well-perfused and her pulses are full in all extremities. Her cardiac exam is unremarkable as well as her pulmonary exam. Does have some mild epigastric tenderness which she reports is chronic.. Differential diagnosis includes but is not limited to gastritis, ACS, DE, electrolyte disturbance. Based on these concerns, I ordered CBC, CMP, PT/INR, troponin, chest x-ray. I reviewed prior records including CT CTA done yesterday. I had an interactive discussion with the cardiology provider Jeromy and relayed patient's presentation for the ED today and my suspicion is more that it is gastritis, but I will workup for ACS nonetheless. He agrees that she has had some chronic chest pain and low suspicion as well.. ECG personally interpreted demonstrates as listed above. Patient received Pepcid, GI cocktail for treatment. Labs personally reviewed demonstrate no leukocytosis, no electrolyte derangement, troponin negative x 2.. XR personally interpreted demonstrates no acute cardiopulmonary abnormality. On reassessment patient reports improvement in her pain. She is able to tolerate oral intake and ambulate about the emergency department. She has been observed on telemetry for over 4 hours and has noticed no concerning findings. She did have a sinus heart rate of 48 briefly, however was not symptomatic during this time and her blood pressures have remained normal. I educated the patient that it can be normal to have a low heart rate, especially given that she is a very active person and has had negative cardiac workups yesterday and today. I have a high suspicion for gastritis, and instructed that she can up her dose of Pepcid at home to twice a day as needed. She has good follow-up with her machine fastener and is reliable. At this time it was felt that the patient was safe to be discharged home. The patient was in agreement with this plan. The patient was given strict return precautions prior to being discharged from the emergency department. Critical Care Critical Care Time Critical Care Time: No
--- NOTE | 2023-08-25 11:52 | XR_ITS ---
FINAL REPORT CLINICAL HISTORY: chest pain COMPARISON: None FINDINGS: Two views of the chest were obtained. The heart size and pulmonary vascularity are within normal limits. The mediastinum is normal. No acute pulmonary abnormality is identified. There is no pneumothorax. The bony thorax is intact. IMPRESSION: No active cardiopulmonary disease. Reviewed, Interpreted and Dictated by Winston Fierro III, MD Transcribed by Neva Paul Authenticated and [facility]
[2023-08-25 12:00] LABS: Basophils # 0.1 K/mm3 (0-0.2); Eosinophils # 0.2 K/mm3 (0.0-0.4); Eosinophils % 3.2 % (0.1-12.0); Hematocrit 39.8 % (37.0-47.0); Hemoglobin 13.1 g/dL (12.2-16.2); Lymphocytes % 33.3 % (10-50); Mean Corpuscular HGB Conc 32.8 g/dL (31.8-35.4); Mean Corpuscular Hemoglobin 30.9 pg (27.0-31.2); Mean Corpuscular Volume 94.2 fl (81-99); Mean Platelet Volume 9.5 fl (7.4-10.4); Monocytes # 0.3 K/mm3 (0.1-1.0); Monocytes % 4.5 % (1.7-9.3); Neutrophils # 3.5 K/mm3 (1.8-7.8); Platelet Count 217 K/mm3 (142-424); Red Blood Count 4.22 M/mm3 (4.20-5.40); Red Cell Distribution Width 13.8 % (11.5-17.5); White Blood Count 6.1 K/mm3 (4.8-10.8)
[2023-08-25 12:01] LABS: Chloride 111 mmol/L (98-107); Potassium 4.1 mmoL/L (3.5-5.1); Sodium 142 mmol/L (136-145)
[2023-08-25 12:03] LABS: Blood Urea Nitrogen 15 mg/dl (7-17); Creatinine Clearance Estimated 45 mL/min (50-200); Estimated Glomerular Filt Rate 82 ml/min (>60); GFR (African American) 99 ML/MIN (>60)
[2023-08-25 12:04] LABS: Alanine Aminotransferase 26 U/L (12-78); Albumin Level 4.6 g/dl (3.5-5.0); Albumin/Globulin Ratio 1.4 (1.1-1.8); Alkaline Phosphatase 94 U/L (38-126); Anion Gap 7.1 mEq/L (5-15); Aspartate Amino Transferase 40 U/L (14-36); Bilirubin,Total 0.5 mg/dl (0.2-1.3); Calcium 9.3 mg/dl (8.4-10.2); Carbon Dioxide 28 mmol/L (22.0-30.0); Globulin 3.3 g/dL (1.3-3.2); Glucose 133 mg/dl (74-100); Lipase 83 U/L (23-300); Magnesium 2.2 mg/dl (1.6-2.3); Total Protein,Serum 7.9 g/dl (6.3-8.2)
[2023-08-25] MEDS: ASPIRIN 81MG CHEWABLE TABLET 324 MG PO (12:16)
[2023-08-25] MEDS: FAMOTIDINE 20MG/2ML VIAL 20 MG IV (12:16)
[2023-08-25] MEDS: BELLADONNA ALKALOIDS 60 ML ML PO (12:16)
[2023-08-25 12:22] LABS: Troponin I < 0.01 ng/ml (0.00-0.034)
[2023-08-25 13:02] LABS: INR 0.88 (0.9-1.1)
[2023-08-25 14:48] LABS: Troponin I < 0.01 ng/ml (0.00-0.034)
== END 2023-08-25 15:24 | disposition home or self-care (01) ==
PROVIDERS: Emergency Provider Emergency Medicine
DX: R00.1 Bradycardia, unspecified (principal); K29.70 Gastritis, unspecified, without bleeding; R07.89 Other chest pain; R10.816 Epigastric abdominal tenderness; K21.9 Gastro-esophageal reflux disease without esophagitis; E78.5 Hyperlipidemia, unspecified
CPT/HCPCS: 71046; 80053; 83690; 83735; 84484; 85025; 85610; 93005; 96374; 99284

== ENCOUNTER 2025-01-09 11:19 | Day surgery (SDC) | payer MEDICARE, SELFPAY ==
--- NOTE | 2025-01-09 07:12 | IR_ITS ---
APPROVED REPORT Patient Location: Outpatient PROCEDURES Left heart catheterization Left ventriculogram Selective coronary angiogram INDICATION Accelerated angina pectoris Informed consent was obtained prior to the procedure. COMPLICATIONS NONE Estimated Blood Loss: LESS THAN 10 ML TECHNIQUE One percent lidocaine used to anesthetize the right anterior aspect of the wrist. The right radial artery was accessed via the Seldinger technique. A 6 [place] sheath was placed in the right radial artery. 2.5 mg of Verapamil, 800 mcg of nitroglycerin, 1mg Lidocaine and 5000 U Heparin were given through the arterial sheath. The JL3 catheter was also used to perform left heart catheterization, left ventriculogram and selective coronary angiogram. At the end of the procedure the sheath was removed good hemostasis was achieved using Traclet band, patient was transferred to the postop holding area in stable condition. ANGIOGRAPHIC RESULTS The left main artery Normal The left anterior descending artery Normal The circumflex artery Normal The right coronary artery Normal The JONES ventriculogram reveals Normal 65% The left ventricular end-diastolic pressure Normal 10 mmHg IMPRESSION Normal coronary arteries Normal ejection fraction Normal LVEDP PLAN 1. Evaluation of noncardiac symptoms Electronically signed by : Ismael Hill MD 01/09/2025 14:41:05
[2025-01-09 11:23] VITALS: BMI 22.4
[2025-01-09 11:40] LABS: Hematocrit 42.0 % (37.0-47.0); Hemoglobin 13.5 g/dL (12.2-16.2); Immature Granulocytes % 0.2 %; Mean Corpuscular HGB Conc 32.1 g/dL (31.8-35.4); Mean Corpuscular Hemoglobin 29.9 pg (27.0-31.2); Mean Corpuscular Volume 93.1 fl (81-99); Nucleated Red Blood Cells % 0 %; Platelet Count 195 K/mm3 (142-424); Red Blood Count 4.51 M/mm3 (4.20-5.40); Red Cell Distribution Width-SD 41.9 fL; White Blood Count 5.6 K/mm3 (4.8-10.8)
[2025-01-09 11:45] LABS: Chloride 102 mmol/L (98-107)
[2025-01-09 11:46] LABS: Potassium 4.1 mmoL/L (3.5-5.1); Sodium 144 mmol/L (136-145)
[2025-01-09 11:49] LABS: Anion Gap 17.1 mEq/L (5-15); Blood Urea Nitrogen 14 mg/dl (7-17); Calcium 9.3 mg/dl (8.4-10.2); Carbon Dioxide 29 mmol/L (22.0-30.0); Creatinine Clearance Estimated 41 mL/min (50-200); Creatinine,Serum 0.70 mg/dl (0.52-1.04); Estimated Glomerular Filt Rate 82 ml/min (>60); GFR (African American) 99 ML/MIN (>60); Glucose 131 mg/dl (74-100)
[2025-01-09 13:14] VITALS: PULSE 115; PULSE 133; RESP 20; O2SAT 95
[2025-01-09] MEDS: NITROGLYCERIN 800MCG/8ML SYR (CATH LAB) 800 MCG IA (13:48)
[2025-01-09] MEDS: 0.9 % SODIUM CHLORIDE 500 ML 25 ML IV (13:49)
[2025-01-09] MEDS: HEPARIN 1,000 UNITS/500ML NS (CATH LAB) 3000 UNIT IV (13:49)
[2025-01-09] MEDS: VERAPAMIL 2.5MG/ML 2ML VIAL 2.5 MG IV (13:50)
[2025-01-09] MEDS: HEPARIN 1,000 UNITS/ML 10ML VIAL (CATH LAB) 5000 UNIT IV (13:50)
[2025-01-09] MEDS: LIDOCAINE 1% 10ML MDV 10 ML IJ (13:50)
[2025-01-09] MEDS: MIDAZOLAM 2MG/2ML VIAL 1 MG IV (14:32)
[2025-01-09] MEDS: MIDAZOLAM HCL 1MG/ML 5ML VIAL 1 MG IV (14:33)
[2025-01-09] MEDS: FENTANYL 100MCG/2ML VIAL 50 MCG IV (14:33)
[2025-01-09 14:38] VITALS: BP 115/66; PULSE 87; PULSE 88; RESP 18; O2SAT 96
[2025-01-09 14:45] VITALS: BP 102/56; PULSE 86; RESP 18; O2SAT 91
[2025-01-09 14:50] VITALS: BP 134/63; PULSE 84; RESP 18; O2SAT 92
[2025-01-09 15:35] VITALS: BP 110/72; PULSE 84; RESP 18; O2SAT 93
[2025-01-09 16:00] VITALS: BP 124/58; PULSE 64; RESP 18; O2SAT 98
== END 2025-01-09 16:39 | disposition home or self-care (01) ==
LOC: CATHLAB 11:20
PROVIDERS: Visit Provider Internal Medicine
PROC: 4A023N7 Measurement of Cardiac Sampling and Pressure, Left Heart, Percutaneous Approach (ICD-10-PCS; CPT 93452; principal; 2025-01-09 14:15)
DX: I20.89 Other forms of angina pectoris (principal); R07.9 Chest pain, unspecified; R53.83 Other fatigue; I51.89 Other ill-defined heart diseases; I11.0 Hypertensive heart disease with heart failure; E78.2 Mixed hyperlipidemia; R06.02 Shortness of breath; J98.4 Other disorders of lung; R91.8 Other nonspecific abnormal finding of lung field; R42 Dizziness and giddiness; G47.33 Obstructive sleep apnea (adult) (pediatric); J45.909 Unspecified asthma, uncomplicated; Z79.51 Long term (current) use of inhaled steroids; Z79.899 Other long term (current) drug therapy; Z88.8 Allergy status to other drugs, medicaments and biological substances; Z88.1 Allergy status to other antibiotic agents; Z91.040 Latex allergy status
CPT/HCPCS: 36415; 80048; 85025; 93458; 99152; C1769; C1887; J1200; J1644; J2003; J2250; J3010; J7040; Q9967